=== PATIENT | male | born 1960 | race Caucasian/White ===

== ENCOUNTER 2018-02-25 09:06 | Emergency (ER) | payer OTHER ==
[~2018-02-25] VITALS: Ht 170.2 cm; Wt 98.0 kg
[~2018-02-25 09:06] MED LIST: 8 HOUR PAIN RE650 MG PO; AMLODIPINE BESYL5 MG PO; ASPIRIN 8181 MG PO; ATORVASTATIN CA20 MG PO; CO Q-10200 M1 PO; CRESTOR20 MG PO; DIOVAN160 MG PO; DOCUSATE CAL240 MG PO; FIORICE1 PO; HUMALOG100 MG/ML SC; HUMALOG100 UNIT/M SC; JANUVIA100 MG PO; LEVEMIR FL100 UNIT/M SC; LEVEMIR1000 UNITS SC; LOSARTAN POTAS100 MG PO; LOVASTATIN20 MG PO; NOVOLOG MIX 70/1 INJ SC; OXCARBAZEPINE300 MG PO; PRAVASTATIN10 MG PO; TRIPLE OMEGA-3-6-9 PO; VASCEPA1 GM PO; WARFARIN10 MG PO; WARFARIN2.5 MG PO; WARFARIN7.5 MG PO; XARELTO20 MG PO
[2018-02-25] MEDS ORDERED: [UNRECOGNIZED DRUG - OTHER] (09:51)
[2018-02-25] MEDS ORDERED: NAPROSYN500 MG PO (10:14)
[2018-02-25 10:29] VITALS: BP 142/81
== END 2018-02-25 10:36 | disposition home or self-care (01) | DRG 558 ==
LOC: ED 09:06
DX: M67.431 Ganglion, right wrist (principal); I10 Essential (primary) hypertension; E11.9 Type 2 diabetes mellitus without complications; F17.210 Nicotine dependence, cigarettes, uncomplicated

== ENCOUNTER 2021-12-24 08:12 | Emergency (ER) | payer OTHER ==
[~2021-12-24] VITALS: Ht 170.2 cm; Wt 82.7 kg
[~2021-12-24 08:12] MED LIST changes: +AMLODIPINE BESY10 MG PO; +BAYER ASPIRIN PO; +HYDROCHLOROT12.5 MG PO; +LEXAPRO10 MG PO; +NAPROSYN500 MG PO; +XANAX0.5 MG PO; +[UNRECOGNIZED DRUG - OTHER]
[2021-12-24 08:51] VITALS: BP 182/71
[2021-12-24 10:11] LABS: HEMATOCRIT 27.2 % (39.0-50.0); IMMATURE GRANULOCYTES 0.2 % (0.0-5.0); MEAN CELL VOLUME 98.2 fL CALC (80.0-100.0); MEAN CORPUSCULAR HGB 32.1 pG CALC (26.0-32.0); MEAN CORPUSCULAR HGB CONC 32.7 g/dL CAL (32.0-36.0); NEUT# 6.23 thou/uL (1.82-7.42); RED BLOOD COUNT 2.77 mill/uL (4.70-6.10); RED CELL DISTRI WIDTH 13.1 % (11.5-15.5)
[2021-12-24 10:25] LABS: HEMOGLOBIN 8.9 g/dl (14.0-18.0)
[2021-12-24 10:29] LABS: ALBUMIN 2.8 g/dL (3.2-5.0); POTASSIUM 4.7 mmol/l (3.5-5.1); TOTAL PROTEIN 5.6 g/dL (6.3-8.2)
[2021-12-24 10:30] LABS: BILIRUBIN, TOTAL 0.2 mg/dL (0.0-1.4); CREATININE 8.8 mg/dL (0.7-1.3)
[2021-12-24 10:56] VITALS: BP 168/70
== END 2021-12-24 10:56 | disposition home or self-care (01) | DRG 391 ==
LOC: ED 08:12
PROVIDERS: Emergency Medicine
DX: K59.00 Constipation, unspecified (principal); N18.6 End stage renal disease; I12.0 Hypertensive chronic kidney disease with stage 5 chronic kidney disease or end stage renal disease; E11.22 Type 2 diabetes mellitus with diabetic chronic kidney disease; F17.210 Nicotine dependence, cigarettes, uncomplicated; Z79.4 Long term (current) use of insulin; Z99.2 Dependence on renal dialysis

== ENCOUNTER 2022-01-19 03:06 | Inpatient (IN) | payer OTHER ==
[~2022-01-19] VITALS: Ht 170.2 cm; Wt 78.4 kg
[2022-01-19] VITALS (33 sets, daily range): BP systolic 155–259; BP diastolic 51–113
[2022-01-19 03:30] LABS: HEMATOCRIT 30.8 % (39.0-50.0); HEMOGLOBIN 9.8 g/dl (14.0-18.0); IMMATURE GRANULOCYTES 0.5 % (0.0-5.0); MEAN CORPUSCULAR HGB 32.5 pG CALC (26.0-32.0); MEAN CORPUSCULAR HGB CONC 31.8 g/dL CAL (32.0-36.0); NEUT# 12.05 thou/uL (1.82-7.42); RED BLOOD COUNT 3.02 mill/uL (4.70-6.10); RED CELL DISTRI WIDTH 14.3 % (11.5-15.5)
[2022-01-19 03:53] LABS: BILIRUBIN, TOTAL 0.2 mg/dL (0.0-1.4); POTASSIUM 4.3 mmol/l (3.5-5.1)
[2022-01-19 04:06] LABS: CREATININE 6.7 mg/dL (0.7-1.3)
[2022-01-19 04:52] LABS: URINE BILIRUBIN - DIPSTICK NEGATIVE (NEGATIVE); URINE BLOOD DIPSTICK TRACE-INTACT (NEGATIVE); URINE COLOR YELLOW; URINE GLUCOSE - DIPSTICK >=1000 mg/dL (NEGATIVE); URINE KETONE TRACE mg/dL (NEGATIVE); URINE LEUK ESTERASE NEGATIVE (NEGATIVE); URINE PH 7.5 (4.5-8.0); URINE PROTEIN - DIPSTICK >=300 mg/dL (NEG-TRACE); URINE UROBILINOGEN - DIPSTICK 0.2 E.U./dL (0.2)
[2022-01-19 04:55] LABS: URINE NITRITE - DIPSTICK NEGATIVE (Negative)
[2022-01-19 04:59] LABS: URINE BACTERIA FEW hpf; URINE EPITHELIAL CELLS FEW EPI/hpf (0-FEW)
[2022-01-20] VITALS (18 sets, daily range): BP systolic 150–179; BP diastolic 49–84
[2022-01-20 06:52] LABS: HEMATOCRIT 27.6 % (39.0-50.0); MEAN CELL VOLUME 100.4 fL CALC (80.0-100.0); MEAN CORPUSCULAR HGB 32.7 pG CALC (26.0-32.0); MEAN CORPUSCULAR HGB CONC 32.6 g/dL CAL (32.0-36.0); RED BLOOD COUNT 2.75 mill/uL (4.70-6.10); RED CELL DISTRI WIDTH 14.5 % (11.5-15.5)
[2022-01-20 07:22] LABS: ALBUMIN 2.6 g/dL (3.2-5.0); POTASSIUM 4.2 mmol/l (3.5-5.1)
[2022-01-20 07:24] LABS: MAGNESIUM 2.1 mg/dL (1.6-2.3); POTASSIUM 4.2 mmol/l (3.5-5.1)
[2022-01-20 07:34] LABS: CREATININE 5.8 mg/dL (0.7-1.3)
[2022-01-20 07:35] LABS: CREATININE 5.7 mg/dL (0.7-1.3)
[2022-01-21] VITALS (12 sets, daily range): BP systolic 151–201; BP diastolic 47–64
[2022-01-21 06:16] LABS: ALBUMIN 2.4 g/dL (3.2-5.0); POTASSIUM 4.5 mmol/l (3.5-5.1)
[2022-01-21 06:22] LABS: CREATININE 6.7 mg/dL (0.7-1.3)
[2022-01-22 03:48] VITALS: BP 161/55
[2022-01-22 06:13] LABS: ALBUMIN 2.8 g/dL (3.2-5.0); POTASSIUM 3.9 mmol/l (3.5-5.1)
[2022-01-22 06:34] LABS: CREATININE 5.3 mg/dL (0.7-1.3)
[2022-01-22 06:55] VITALS: BP 192/65
[2022-01-22 08:05] VITALS: BP 192/65
[2022-01-22] MEDS ORDERED: NORMODYNE/TRAN100 MG PO (08:53)
[2022-01-22] MEDS ORDERED: AMLODIPINE BESY10 MG PO (08:54)
[2022-01-22] MEDS ORDERED: VIBRAMYCIN100 M2 PO (08:56)
== END 2022-01-22 11:44 | disposition home or self-care (01) | DRG 193 ==
LOC: ED 03:06 → ED-I 04:04 → ED 05:06 → ICU 05:07 → MS2 07:23 → ICU 07:23 → MS2 14:41 → ICU 01-20 15:57 → MS2 01-21 14:00
PROVIDERS: Emergency Medicine; Internal Medicine Nephrology; ADMIT Internal Medicine; ATTEND Internal Medicine
PROC: 5A09357 Assistance with Respiratory Ventilation, Less than 24 Consecutive Hours, Continuous Positive Airway Pressure (ICD-10-PCS; principal; 2022-01-19)
PROC: 5A1D70Z Performance of Urinary Filtration, Intermittent, Less than 6 Hours Per Day (ICD-10-PCS; 2022-01-19)
PROC: 5A1D70Z Performance of Urinary Filtration, Intermittent, Less than 6 Hours Per Day (ICD-10-PCS; 2022-01-21)
DX: J18.9 Pneumonia, unspecified organism (principal); I50.31 Acute diastolic (congestive) heart failure; J96.01 Acute respiratory failure with hypoxia; N18.6 End stage renal disease; I13.2 Hypertensive heart and chronic kidney disease with heart failure and with stage 5 chronic kidney disease, or end stage renal disease; J44.0 Chronic obstructive pulmonary disease with (acute) lower respiratory infection; N25.81 Secondary hyperparathyroidism of renal origin; E11.22 Type 2 diabetes mellitus with diabetic chronic kidney disease; R79.89 Other specified abnormal findings of blood chemistry; F17.210 Nicotine dependence, cigarettes, uncomplicated; D63.1 Anemia in chronic kidney disease; F41.9 Anxiety disorder, unspecified; G47.30 Sleep apnea, unspecified; T38.3X6A Underdosing of insulin and oral hypoglycemic [antidiabetic] drugs, initial encounter; T46.5X6A Underdosing of other antihypertensive drugs, initial encounter; Z79.4 Long term (current) use of insulin; Z99.2 Dependence on renal dialysis; Z85.47 Personal history of malignant neoplasm of testis; Z86.73 Personal history of transient ischemic attack (TIA), and cerebral infarction without residual deficits; Z87.820 Personal history of traumatic brain injury; Z91.128 Patient's intentional underdosing of medication regimen for other reason
CPT/HCPCS: J1644; J1756

== ENCOUNTER 2022-02-01 12:10 | Emergency (ER) | payer OTHER ==
[~2022-02-01] VITALS: Ht 170.2 cm; Wt 80.9 kg
[~2022-02-01 12:10] MED LIST changes: +NORMODYNE/TRAN100 MG PO; +VIBRAMYCIN100 M2 PO
[2022-02-01 12:41] LABS: BASO% 0.4 % (0-3); EOS% 1.5 % (0-8); HEMATOCRIT 30.9 % (39.0-50.0); HEMOGLOBIN 10.1 g/dl (14.0-18.0); IMMATURE GRANULOCYTES 0.2 % (0.0-5.0); LYMPH% 22.5 % (15-41); MEAN CELL VOLUME 102.7 fL CALC (80.0-100.0); MEAN CORPUSCULAR HGB 33.6 pG CALC (26.0-32.0); MEAN CORPUSCULAR HGB CONC 32.7 g/dL CAL (32.0-36.0); MONO% 5.3 % (2-13); NEUT# 7.61 thou/uL (1.82-7.42); NEUT% 70.1 % (42-76); RED BLOOD COUNT 3.01 mill/uL (4.70-6.10); RED CELL DISTRI WIDTH 15.6 % (11.5-15.5)
[2022-02-01 12:54] LABS: ALBUMIN 3.1 g/dL (3.2-5.0); BILIRUBIN, TOTAL 0.2 mg/dL (0.0-1.4); TOTAL PROTEIN 5.9 g/dL (6.3-8.2)
[2022-02-01 12:57] LABS: CREATININE 5.9 mg/dL (0.7-1.3)
[2022-02-01] MEDS ORDERED: PREDNISONE50 MG PO (15:02)
[2022-02-01] MEDS ORDERED: LEVAQUIN750 M1 PO (15:02)
[2022-02-01 15:14] VITALS: BP 219/85
== END 2022-02-01 15:32 | disposition home or self-care (01) | DRG 195 ==
LOC: ED 12:10
PROVIDERS: Emergency Medicine
DX: J18.9 Pneumonia, unspecified organism (principal); J98.01 Acute bronchospasm; E11.22 Type 2 diabetes mellitus with diabetic chronic kidney disease; I12.9 Hypertensive chronic kidney disease with stage 1 through stage 4 chronic kidney disease, or unspecified chronic kidney disease; N18.9 Chronic kidney disease, unspecified; Z79.4 Long term (current) use of insulin; Z99.2 Dependence on renal dialysis; Z85.47 Personal history of malignant neoplasm of testis; Z86.73 Personal history of transient ischemic attack (TIA), and cerebral infarction without residual deficits; F41.9 Anxiety disorder, unspecified

== ENCOUNTER 2022-02-08 15:25 | Emergency (ER) | payer OTHER ==
[~2022-02-08] VITALS: Ht 170.2 cm; Wt 84.0 kg
[~2022-02-08 15:25] MED LIST changes: +LEVAQUIN750 M1 PO; +PREDNISONE50 MG PO
[2022-02-08] MEDS ORDERED: ZPAK PO (17:38)
[2022-02-08] MEDS ORDERED: PROVENTIL HFA IN (17:52)
[2022-02-08 17:57] VITALS: BP 218/82
== END 2022-02-08 18:07 | disposition left against medical advice (07) | DRG 204 ==
LOC: ED 15:25
DX: R06.02 Shortness of breath (principal); N18.6 End stage renal disease; I12.0 Hypertensive chronic kidney disease with stage 5 chronic kidney disease or end stage renal disease; F41.9 Anxiety disorder, unspecified; Z53.29 Procedure and treatment not carried out because of patient's decision for other reasons; E11.22 Type 2 diabetes mellitus with diabetic chronic kidney disease

== ENCOUNTER 2023-02-05 11:39 | Emergency (ER) | payer OTHER ==
[~2023-02-05] VITALS: Ht 170.2 cm; Wt 74.0 kg
[~2023-02-05 11:39] MED LIST changes: +PROVENTIL HFA IN; +ZPAK PO
[2023-02-05] MEDS ORDERED: KEFLEX500 MG PO (12:38)
[2023-02-05 12:52] VITALS: BP 194/82
== END 2023-02-05 13:21 | disposition home or self-care (01) | DRG 951 ==
LOC: ED 11:39
DX: Z48.02 Encounter for removal of sutures (principal)

== ENCOUNTER 2023-03-03 16:16 | Emergency (ER) | payer SELFPAY ==
[2023-03-03] VITALS (8 sets, daily range): BP systolic 161–221; BP diastolic 55–148
[~2023-03-03] VITALS: Ht 170.2 cm; Wt 77.0 kg
[~2023-03-03 16:16] MED LIST changes: +KEFLEX500 MG PO
[2023-03-03 16:50] LABS: BASO% 0.4 % (0-3); EOS% 0.3 % (0-8); HEMATOCRIT 27.9 % (39.0-50.0); HEMOGLOBIN 9.2 g/dl (14.0-18.0); IMMATURE GRANULOCYTES 0.3 % (0.0-5.0); LYMPH% 11.7 % (15-41); MEAN CORPUSCULAR HGB 35.1 pG CALC (26.0-32.0); MONO% 13.8 % (2-13); NEUT# 5.1 thou/uL (1.82-7.42); NEUT% 73.5 % (42-76); RED BLOOD COUNT 2.62 mill/uL (4.70-6.10); RED CELL DISTRI WIDTH 15.3 % (11.5-15.5)
[2023-03-03 16:57] LABS: MEAN CELL VOLUME 106.5 fL CALC (80.0-100.0)
[2023-03-03 17:05] LABS: ALBUMIN 3.7 g/dL (3.2-5.0); CHOLESTEROL HDL RATIO 1.8 (<4.4 (CALC)); POTASSIUM 4.2 mmol/l (3.5-5.1); TOTAL PROTEIN 6.2 g/dL (6.3-8.2)
[2023-03-03 17:06] LABS: INTERNATIONAL NORMALIZED RATIO 1.5 RATIO (0.7-1.3); PROTHROMBIN TIME 13.6 SECONDS (9.0-12.5)
== END 2023-03-03 19:05 | disposition short-term general hospital (02) | DRG 77 ==
LOC: ED 16:16
PROVIDERS: Emergency Medicine
DX: I67.4 Hypertensive encephalopathy (principal); N18.6 End stage renal disease; G45.9 Transient cerebral ischemic attack, unspecified; I12.0 Hypertensive chronic kidney disease with stage 5 chronic kidney disease or end stage renal disease; R47.81 Slurred speech; R29.810 Facial weakness; E11.22 Type 2 diabetes mellitus with diabetic chronic kidney disease; Z99.2 Dependence on renal dialysis; E11.51 Type 2 diabetes mellitus with diabetic peripheral angiopathy without gangrene; Z95.820 Peripheral vascular angioplasty status with implants and grafts; Z79.4 Long term (current) use of insulin; F17.200 Nicotine dependence, unspecified, uncomplicated; E11.65 Type 2 diabetes mellitus with hyperglycemia; Z85.47 Personal history of malignant neoplasm of testis; Z86.73 Personal history of transient ischemic attack (TIA), and cerebral infarction without residual deficits; Z87.820 Personal history of traumatic brain injury; G47.33 Obstructive sleep apnea (adult) (pediatric)